=== PATIENT | male | born 1970 | race Caucasian/White ===

== ENCOUNTER 2017-06-29 19:20 | Inpatient (IN) | payer OTHER ==
[2017-06-29 19:37] VITALS: BMI 31.3
--- NOTE | 2017-06-29 21:45 | HP ---
CIWA Score - CIWA Score Nausea/Vomitin Muscle Tremors: 2 Anxiety: 3 Agitation: 2 Paroxysmal Sweats: 2 Orientation: 0-Oriented Tacttile Disturbances: 0-None Auditory Disturbances: 0-None Visual Disturbances: 2-Mild Sensitivity Headache: 2-Mild CIWA-Ar Total Score: 16 Admission ROS [facility] - HPI Chief Complaint: " I wish to stop taking all these drugs and get off the methadone, I want to go to rehab , but I also want to go to detox." Allergies/Adverse Reactions: Allergies Allergy/AdvReac Type Severity Reaction Status Date / Time aspirin Allergy Severe Swelling Verified 02/14/17 11:37 Penicillins Allergy Severe Swelling Verified 02/14/17 11:37 History of Present Illness: 47 yo male nicotine, alcohol, IV heroin, cocaine, and xanax dependence. Patient currently attends [facility] on methadone 40 mg, last medicated today. PMHX: CV x 2 with left hemiparesis, Emphysema, HTN, hyperlipidemia, schizophrenia, anxiety. Denies auditory or visual hallucinations. Denies suicidal / homicidal ideation. Reports attempted to commit suicide three times, last time 1996 by eating arsenic. Reports longest period of sobriety 15 years. Reports no prior detox, reports attempted to detox on his own and suffered seizures, last episode about a year ago. Exam Limitations: No Limitations - Ebola screening Have you traveled outside of the country in the last 21 days: No Have you had contact with anyone from an Ebola affected area: No Have you been sick,other than usual withdrawal symptoms: No Do you have a fever: No - Review of Systems Constitutional: No Symptoms Reported, Chills, Changes in sleep, Weakness, Unintentional Wgt. Loss EENT: reports: Other (decrease vision left eye) Respiratory: reports: No Symptoms reported Cardiac: reports: No Symptoms Reported GI: reports: Diarrhea, Nausea, Poor Appetite, Poor Fluid Intake, Vomiting, Abdominal cramping : reports: No Symptoms Reported Musculoskeletal: reports: Back Pain, Joint Pain Integumentary: reports: No Symptoms Reported Neuro: reports: See HPI, Headache, Seizure, Tingling Endocrine: reports: Increased Thirst Hematology: reports: Anemia Psychiatric: reports: Orientated x3, Depressed Other Systems: Reviewed and Negative Patient History - Patient Medical History Hx Anemia: Yes Hx Asthma: No Hx Chronic Obstructive Pulmonary Disease (COPD): Yes (Emphysema ) Hx Cancer: No Hx Cardiac Disorders: No Hx Congestive Heart Failure: No Hx Hypertension: Yes (does not know his medications.) Hx Hypercholesterolemia: Yes Hx Pacemaker: No HX Cerebrovascular Accident: Yes (Hemmoragic stroke x 2) Hx Seizures: Yes (drug related seizure last 2 days ago.) Hx Dementia: No Hx Diabetes: No Hx Gastrointestinal Disorders: No Hx Liver Disease: Yes (hx Hep C treate ) Hx Genitourinary Disorders: No Hx Sexually Transmitted Disorders: No Hx Renal Disease (ESRD): No Hx Thyroid Disease: No Hx Human Immunodeficiency Virus (HIV): No Hx Hepatitis C: Yes (treated ) Hx Depression: Yes Hx Suicide Attempt: Yes (Tried to overdose in 2006) Hx Schizophrenia: Yes - Patient Surgical History Past Surgical History: Yes Hx Neurologic Surgery: No Hx Cataract Extraction: No Hx Cardiac Surgery: No Hx Lung Surgery: No Hx Breast Surgery: No Hx Breast Biopsy: No Hx Abdominal Surgery: No Hx Appendectomy: No Hx Cholecystectomy: No Hx Genitourinary Surgery: No Hx Section: No Hx Orthopedic Surgery: Yes (R ankle sx) Hx Hysterectomy: No Anesthesia Reaction: No - PPD History Previous Implant?: No Documented Results: Negative w/o proof PPD to be Administered?: Yes - Reproductive History Patient is a Female of Child Bearing Age (11 -55 yrs old): No - Smoking Cessation Smoking history: Current every day smoker Have you smoked in the past 12 months: Yes Aproximately how many cigarettes per day: 20 Hx Chewing Tobacco Use: No Initiated information on smoking cessation: Yes 'Breaking Loose' booklet given: 06/29/17 - Substance & Tx. History Hx Alcohol Use: Yes Hx Substance Use: Yes Substance Use Type: Alcohol, Cocaine, Heroin, Tranquilizers Hx Substance Use Treatment: No - Substances Abused Alcohol Route: Oral Frequency: 3-6 times per week Amount used: 1/2 pint gin Age of first use: 21 Date of Last Use: 06/29/17 Heroin Route: Injection Frequency: Daily Amount used: 1 bag Age of first use: 45 Date of Last Use: 06/29/17 Cocaine Frequency: Daily Amount used: $30 Age of first use: 45 Date of Last Use: 06/29/17 Alprazolam (Xanax) Route: Oral Frequency: Daily Amount used: 2 x 2mg Age of first use: 28 Date of Last Use: 06/29/17 Family Disease History - Family Disease History Family Disease History: Other: Father (, aneurysm), Mother (, cancer and CVA ) Admission Physical Exam [facility] - Vital Signs Vital Signs: Vital Signs - 24 hr 06/29/17 19:28 Temperature 98.8 F Pulse Rate 76 Respiratory 18 Rate Blood Pressure 123/69 - Physical General Appearance: Yes: Disheveled, Anxious HEENTM: Yes: EOMI, Hearing grossly Normal, Normal ENT Inspection, Normocephalic , Normal Voice, Pharynx Normal, Tm's normal Respiratory: Yes: Chest Non-Tender, Lungs Clear, Normal Breath Sounds, No Respiratory Distress, No Accessory Muscle Use Neck: Yes: Within Normal Limits Breast: Yes: Breast Exam Deferred Cardiology: Yes: Regular Rhythm, Regular Rate Abdominal: Yes: Normal Bowel Sounds, Non Tender, Flat, Soft Genitourinary: Yes: Within Normal Limits Back: Yes: Other (scoliosis) Musculoskeletal: Yes: Gait Steady, Other (left hemiparesis, uses cane for ambulation) Extremities: Yes: Normal Capillary Refill, Normal Range of Motion, Non-Tender Neurological: Yes: 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 II-XII NML intact, Fully Oriented, Alert, Motor Strength 5/5, Depressed Affect Integumentary: Yes: Normal Color, Warm, Moist Lymphatic: Yes: Within Normal Limits - Diagnostic (1) Opioid dependence on agonist therapy Current Visit: Yes Status: Acute Comment: methadone 40 mg, dose pending verification (2) Sedative hypnotic or anxiolytic dependence Current Visit: Yes Status: Acute (3) Alcohol dependence with withdrawal Current Visit: Yes Status: Acute Qualifiers: Complication of substance-induced condition: uncomplicated Qualified Code(s ): F10.230 - Alcohol dependence with withdrawal, uncomplicated (4) Left hemiparesis Current Visit: Yes Status: Chronic (5) Use of cane as ambulatory aid Current Visit: Yes Status: Chronic (6) Cocaine dependence Current Visit: Yes Status: Acute Qualifiers: Substance use status: uncomplicated Qualified Code(s): F14.20 - Cocaine dependence, uncomplicated (7) IV drug user Current Visit: Yes Status: Acute Comment: heroin (8) Nicotine dependence Current Visit: Yes Status: Acute Qualifiers: Nicotine product type: cigarettes (9) Hypertension Current Visit: Yes Status: Chronic Qualifiers: Hypertension type: essential hypertension Qualified Code(s): I10 - Essential (primary) hypertension (10) Anxious mood Current Visit: Yes Status: Acute Cleared for Admission [facility] - Detox or Rehab [facility] Level of Care: Medically Managed Detox Regimen/Protocol: Librium [facility] Breath Alcohol Content Breath Alcohol Content: 0 Urine Drug Screen - Results Drug Screen Negative: No Urine Drug Screen Results: ALICJA-Cocaine, OPI-Opiates, BZO-Benzodiazepines, MTD- Methadone
[2017-06-29] MEDS ORDERED: MELATONIN 5 MG TABLETS PO PRN (22:00)
[2017-06-29] MEDS ORDERED: NICOTINE POLACRILEX 2 MG GUM BC PRN (22:58)
[2017-06-29] MEDS ORDERED: MAGNESIUM CITRATE 300 ML BOTTLE PO PRN (22:58)
[2017-06-29] MEDS ORDERED: IBUPROFEN 400 MG TABLET (FP) PO PRN (22:58)
[2017-06-29] MEDS ORDERED: MAGNESIUM HYDROX 2400MG/30ML ORAL SUSPENSION 30 ML CUP PO PRN (22:58)
[2017-06-29] MEDS ORDERED: guaiFENesin/D-METHORPHAN HB 10 ML UNIT-DOSE CUPS PO PRN (22:58)
[2017-06-29] MEDS ORDERED: ACETAMINOPHEN 325 MG TABLET (FP) PO PRN (22:58)
[2017-06-29] MEDS ORDERED: P-EPHED 60MG/TRIPROLIDI 2.5MG TABLET PO PRN (22:58)
[2017-06-29] MEDS ORDERED: MENTHOL/PHENOL 1 EACH UD MM PRN (22:58)
[2017-06-29] MEDS ORDERED: LOPERAMIDE HCL 2 MG CAPSULE PO PRN (22:58)
[2017-06-29] MEDS ORDERED: MAG HYDROX/AL HYDROX/SIMETH 30 ML UNIT-DOSE CUP PO PRN (22:58)
[2017-06-29] MEDS ORDERED: chlordiazePOXIDE HCL 25 MG CAPSULE PO PRN (22:58)
[2017-06-30] MEDS: chlordiazePOXIDE HCL 25 MG CAPSULE PO SCH ×5 (00:29→22:18)
[2017-06-30 05:15] LABS: URINE APPEARANCE TURBID; URINE BILIRUBIN NEGATIVE (<2.0 mg/dL); URINE COLOR YELLOW; URINE GLUCOSE (UA) NEGATIVE (NEGATIVE); URINE KETONE NEGATIVE (NEGATIVE); URINE LEUK ESTERASE NEGATIVE (NEGATIVE); URINE NITRITE NEGATIVE (NEGATIVE)
[2017-06-30 05:27] LABS: URINE PROTEIN 1+ (NEGATIVE)
[2017-06-30 05:34] LABS: URINE BACTERIA RARE /hpf (NONE SEEN); URINE MUCUS MODERATE
[2017-06-30] MEDS: BACLOFEN 10 MG TABLET (FP) PO SCH ×3 (06:26→22:18)
[2017-06-30] MEDS: TIZANIDINE HCL 4 MG TABLET PO SCH ×2 (06:26→15:05)
[2017-06-30] MEDS ORDERED: METHADONE HCL 40 MG DISPERSABLE TABLET PO ONE (09:45)
[2017-06-30 09:54] LABS: HEMATOCRIT 33.5 % (35.4-49); HEMOGLOBIN 11.3 GM/dL (11.7-16.9); MCH 29.7 pg (25.7-33.7); MCHC 33.6 g/dl (32.0-35.9); MEAN CELL VOLUME 88.4 fl (80-96); MEAN PLT VOLUME 7.7 fl (7.5-11.1); PLATELET COUNT 210 K/MM3 (134-434); RBC 3.79 M/mm3 (4.00-5.60); RDW 13.5 % (11.9-15.9); WHITE BLOOD COUNT 4.4 K/mm3 (4.0-10.0)
[2017-06-30] MEDS: PRENATAL VITAMINS W/ FOLIC ACID TABLET (FP) PO SCH (10:13)
[2017-06-30] MEDS: CLOPIDOGREL BISULFATE 75 MG TABLET (FP) PO SCH (10:13)
[2017-06-30] MEDS: GABAPENTIN 400 MG CAPSULE (FP) PO SCH ×2 (10:13→22:18)
[2017-06-30] MEDS: DIVALPROEX SODIUM 500 MG TABLET E.C. PO SCH ×2 (10:14→22:18)
[2017-06-30 10:38] LABS: ALBUMIN 2.8 g/dl (3.4-5.0); ANION GAP 4 (8-16); BLOOD UREA NITROGEN 10 mg/dL (7-18); CALCIUM 7.9 mg/dL (8.5-10.1); CHLORIDE 108 mmol/L (98-107); CO2 31 mmol/L (21-32); GLUCOSE,RANDOM 86 mg/dL (74-106); POTASSIUM 3.9 mmol/L (3.5-5.1); SODIUM 143 mmol/L (136-145)
[2017-06-30 10:42] LABS: ALK PHOS 68 U/L (45-117); BILIRUBIN,TOTAL 0.1 mg/dL (0.2-1.0); CREATININE 0.7 mg/dL (0.7-1.3); SGOT/AST 15 U/L (15-37); SGPT/ALT 19 U/L (12-78); TOT PROT 5.9 g/dl (6.4-8.2)
--- NOTE | 2017-06-30 11:00 | PN ---
[facility] CIWA - CIWA Score Nausea/Vomitin-No Nausea/No Vomiting Muscle Tremors: 4-Moderate,w/Arms Extend Anxiety: 4-Mod. Anxious/Guarded Agitation: 4-Moderately Restless Paroxysmal Sweats: 1-Minimal Palms Moist Orientation: 0-Oriented Tacttile Disturbances: 0-None Auditory Disturbances: 0-None Visual Disturbances: 0-None Headache: 0-None Present CIWA-Ar Total Score: 13 S Progress Note (SOAP) Subjective: ANXIETY,TREMORS,SWEATS/CHILLS,YAWNING,ACHY,NASAL CONGESTION. ON METHADONE 40 MG PO DAILY. Objective: 06/30/17 10:58 Vital Signs Temperature 97.0 F L 06/30/17 09:16 Pulse Rate 62 06/30/17 09:16 Respiratory Rate 16 06/30/17 09:16 Blood Pressure 124/83 06/30/17 09:16 O2 Sat by Pulse Oximetry (%) Laboratory Last Values WBC 4.4 K/mm3 (4.0-10.0) 06/30/17 07:30 RBC 3.79 M/mm3 (4.00-5.60) L 06/30/17 07:30 Hgb 11.3 GM/dL (11.7-16.9) L 06/30/17 07:30 Hct 33.5 % (35.4-49) L 06/30/17 07:30 MCV 88.4 fl (80-96) 06/30/17 07:30 MCH 29.7 pg (25.7-33.7) 06/30/17 07:30 MCHC 33.6 g/dl (32.0-35.9) 06/30/17 07:30 RDW 13.5 % (11.9-15.9) 06/30/17 07:30 Plt Count 210 K/MM3 (134-434) 06/30/17 07:30 MPV 7.7 fl (7.5-11.1) 06/30/17 07:30 Sodium 143 mmol/L (136-145) 06/30/17 07:30 Potassium 3.9 mmol/L (3.5-5.1) 06/30/17 07:30 Chloride 108 mmol/L (98-107) H 06/30/17 07:30 Carbon Dioxide 31 mmol/L (21-32) 06/30/17 07:30 Anion Gap 4 (8-16) L 06/30/17 07:30 BUN 10 mg/dL (7-18) 06/30/17 07:30 Creatinine 0.7 mg/dL (0.7-1.3) 06/30/17 07:30 Creat Clearance w eGFR > 60 (>60) 06/30/17 07:30 Random Glucose 86 mg/dL (74-106) 06/30/17 07:30 Calcium 7.9 mg/dL (8.5-10.1) L 06/30/17 07:30 Total Bilirubin 0.1 mg/dL (0.2-1.0) L 06/30/17 07:30 AST 15 U/L (15-37) 06/30/17 07:30 ALT 19 U/L (12-78) 06/30/17 07:30 Alkaline Phosphatase 68 U/L (45-117) 06/30/17 07:30 Total Protein 5.9 g/dl (6.4-8.2) L 06/30/17 07:30 Albumin 2.8 g/dl (3.4-5.0) L 06/30/17 07:30 Urine Color Yellow 06/29/17 23:53 Urine Appearance Turbid 06/29/17 23:53 Urine pH 5.0 (5.0-8.0) 06/29/17 23:53 Ur Specific [place] 1.033 (1.001-1.035) 06/29/17 23:53 Urine Protein 1+ (NEGATIVE) H 06/29/17 23:53 Urine Glucose (UA) Negative (NEGATIVE) 06/29/17 23:53 Urine Ketones Negative (NEGATIVE) 06/29/17 23:53 Urine Blood Negative (NEGATIVE) 06/29/17 23:53 Urine Nitrite Negative (NEGATIVE) 06/29/17 23:53 Urine Bilirubin Negative (<2.0 mg/dL) 06/29/17 23:53 Urine Urobilinogen 2.0 mg/dL (0.2-1.0) 06/29/17 23:53 Ur Leukocyte Esterase Negative (NEGATIVE) 06/29/17 23:53 Urine WBC (Auto) 73 /hpf (3-5) 06/29/17 23:53 Urine RBC (Auto) 2 /hpf (0-3) 06/29/17 23:53 Urine Bacteria Rare /hpf (NONE SEEN) 06/29/17 23:53 Urine Mucus Moderate 06/29/17 23:53 Assessment: 06/30/17 10:58 WITHDRAWAL SX Plan: CONTINUE DETOX REORDER METHADONE 40 MG PO DAILY, FIRST DOSE AT 10 AM. INCREASE PO FLUID. ACTIFED PRN
--- NOTE | 2017-06-30 11:32 | EKG ---
Test Reason : Blood Pressure : / mmHG Vent. Rate : 062 BPM Atrial Rate : 062 BPM P-R Int : 170 ms QRS Dur : 096 ms QT Int : 426 ms P-R-T Axes : 014 021 000 degrees QTc Int : 432 ms NORMAL SINUS RHYTHM NORMAL ECG NO PREVIOUS ECGS AVAILABLE Confirmed by GRUPO MORRIS MD ([id number]) on 06/30/2017 11:31:34 AM Referred By: Confirmed By:GRUPO MORRIS MD
--- NOTE | 2017-06-30 14:50 | CONSULT ---
[facility] Psychiatric Consult - Data Date of interview: 06/30/17 Admission source: [facility] Identifying data: Patient is a 47 year old male, but , father of two, on disability and receiving SSI, and is currently living in a senior care. Patient admitted to for opiate, cocaine, and benzodiazepine dependence. Substance Abuse History: Following information confirmed with Mr. [place] : Substance & Tx. History. Hx Alcohol Use: Yes. Hx Substance Use: Yes. Substance Use Type: Alcohol, Cocaine, Heroin, Tranquilizers. Hx Substance Use Treatment: No. - Substances Abused. Alcohol. Route: Oral. Frequency: 3-6 times per week. Amount used: 1/2 pint gin. Age of first use: 21. Date of Last Use: 06/29/17. Heroin. Route: Injection. Frequency: Daily. Amount used: 1 bag. Age of first use: 45. Date of Last Use: 06/29/17. Cocaine. Frequency: Daily. Amount used: $30. Age of first use: 45. Date of Last Use: 06/29/17. Alprazolam (Xanax). Route: Oral. Frequency: Daily. Amount used : 2 x 2mg. Age of first use: 28. Date of Last Use: 06/29/17 Medical History: anemia, hypertension, hypercholesterolemia, CVA ( hemmoragic stroke X2), Seizures (drug related 2 days ago), right ankle sx Psychiatric History: Patient presents as a poor historian and is unreliable. Pt. denies h/o psychiatric hospitalizations. OPD is provided in the [place] (pt. unable to recall the name of the clinic). Pt. unaware of his diagnosis but reports taking depakote 500mg BID. Pt. has had several seizures in the past but is unsure if the depakote is prescribed for the seizures. Patient reports taking zoloft 100mg but as per home medication list, patient reported taking zoloft 150mg. 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 Pt. currently denies suicidal and homicidal ideation. Physical/Sexual Abuse/Trauma History: Denies. Mental Status Exam - Mental Status Exam Alert and Oriented to: Time, Place, Person Cognitive Function: Good Patient Appearance: Well Groomed Mood: Withdrawn, Euthymic Affect: Mood Congruent Patient Behavior: Fatigued, Cooperative Speech Pattern: Delayed Voice Loudness: Moderately Soft/Quiet Thought Process: Goal Oriented Thought Disorder: Not Present Hallucinations: Denies Suicidal Ideation: Denies Homicidal Ideation: Denies Insight/Judgement: Poor Sleep: Fair Appetite: Fair Muscle strength/Tone: Normal Gait/Station: Normal Psychiatric Findings - Problem List ([place] 1, 2,3) (1) Substance induced mood disorder Current Visit: Yes Status: Acute (2) Alcohol dependence with withdrawal Current Visit: Yes Status: Acute Qualifiers: Complication of substance-induced condition: uncomplicated Qualified Code(s ): F10.230 - Alcohol dependence with withdrawal, uncomplicated (3) Opioid dependence on agonist therapy Current Visit: Yes Status: Acute Comment: methadone 40 mg, dose pending verification (4) Sedative hypnotic or anxiolytic dependence Current Visit: Yes Status: Acute (5) Cocaine dependence Current Visit: Yes Status: Acute Qualifiers: Substance use status: uncomplicated Qualified Code(s): F14.20 - Cocaine dependence, uncomplicated - Initial Treatment Plan Initial Treatment Plan: Psychoeducation provided. Detoxification in progress. Will order zoloft 50mg PO daily. Depakote 500mg BID ordered by [facility] upon admission. Will order valproic level. Benefits and side effects discussed. Verbal consent given. Will continue to monitor.
[2017-06-30] MEDS: THIAMINE HCL 100 MG TABLET (FP) PO SCH (22:18)
[2017-07-01] MEDS: METHADONE HCL 40 MG DISPERSABLE TABLET PO SCH (06:20)
[2017-07-01] MEDS: chlordiazePOXIDE HCL 25 MG CAPSULE PO SCH ×3 (06:21→17:15)
[2017-07-01] MEDS: BACLOFEN 10 MG TABLET (FP) PO SCH ×3 (06:21→22:15)
[2017-07-01] MEDS ORDERED: SERTRALINE HCL 50 MG TABLET (FP) PO SCH (10:00)
[2017-07-01] MEDS: CLOPIDOGREL BISULFATE 75 MG TABLET (FP) PO SCH (10:27)
[2017-07-01] MEDS: DIVALPROEX SODIUM 500 MG TABLET E.C. PO SCH ×2 (10:27→22:15)
[2017-07-01] MEDS: GABAPENTIN 400 MG CAPSULE (FP) PO SCH ×2 (10:27→22:15)
[2017-07-01] MEDS: PRENATAL VITAMINS W/ FOLIC ACID TABLET (FP) PO SCH (10:29)
--- NOTE | 2017-07-01 12:16 | PN ---
[facility] CIWA - CIWA Score Nausea/Vomitin-No Nausea/No Vomiting Muscle Tremors: 4-Moderate,w/Arms Extend Anxiety: 4-Mod. Anxious/Guarded Agitation: 4-Moderately Restless Paroxysmal Sweats: 1-Minimal Palms Moist Orientation: 0-Oriented Tacttile Disturbances: 3-Moderate Itch/Numb/Burn Auditory Disturbances: 0-None Visual Disturbances: 0-None Headache: 0-None Present CIWA-Ar Total Score: 16 S Progress Note (SOAP) Subjective: ANXIETY,IRRITABILITY,SWEATS,RESTLESSNESS,INTERMITTENT SLEPP. Objective: 07/01/17 12:15 Vital Signs Temperature 96.9 F L 07/01/17 09:55 Pulse Rate 61 07/01/17 09:55 Respiratory Rate 18 07/01/17 09:55 Blood Pressure 100/55 07/01/17 09:55 O2 Sat by Pulse Oximetry (%) Laboratory Tests 06/29/17 06/30/17 06/30/17 23:53 07:30 07:30 WBC 4.4 RBC 3.79 L Hgb 11.3 L Hct 33.5 L MCV 88.4 MCH 29.7 MCHC 33.6 RDW 13.5 Plt Count 210 MPV 7.7 Sodium 143 Potassium 3.9 Chloride 108 H Carbon Dioxide 31 Anion Gap 4 L BUN 10 Creatinine 0.7 Creat Clearance w eGFR > 60 Random Glucose 86 Calcium 7.9 L Total Bilirubin 0.1 L AST 15 ALT 19 Alkaline Phosphatase 68 Total Protein 5.9 L Albumin 2.8 L Urine Color Yellow Urine Appearance Turbid Urine pH 5.0 Ur Specific [place] 1.033 Urine Protein 1+ H Urine Glucose (UA) Negative Urine Ketones Negative Urine Blood Negative Urine Nitrite Negative Urine Bilirubin Negative Urine Urobilinogen 2.0 Ur Leukocyte Esterase Negative Urine WBC (Auto) 73 Urine RBC (Auto) 2 Urine Bacteria Rare Urine Mucus Moderate Valproic Acid RPR Titer 06/30/17 07/01/17 07:30 06:30 WBC RBC Hgb Hct MCV MCH MCHC RDW Plt Count MPV Sodium Potassium Chloride Carbon Dioxide Anion Gap BUN Creatinine Creat Clearance w eGFR Random Glucose Calcium Total Bilirubin AST ALT Alkaline Phosphatase Total Protein Albumin Urine Color Urine Appearance Urine pH Ur Specific [place] Urine Protein Urine Glucose (UA) Urine Ketones Urine Blood Urine Nitrite Urine Bilirubin Urine Urobilinogen Ur Leukocyte Esterase Urine WBC (Auto) Urine RBC (Auto) Urine Bacteria Urine Mucus Valproic Acid 31.764 L RPR Titer Nonreactive Assessment: 07/01/17 12:16 WITHDRAWAL SX Plan: CONTINUE DETOX REPEAT U[facility] TODAY
[2017-07-01 18:31] LABS: URINE APPEARANCE SLCLOUDY; URINE BILIRUBIN NEGATIVE (<2.0 mg/dL); URINE COLOR YELLOW; URINE GLUCOSE (UA) NEGATIVE (NEGATIVE); URINE KETONE NEGATIVE (NEGATIVE); URINE LEUK ESTERASE TRACE (NEGATIVE); URINE NITRITE NEGATIVE (NEGATIVE); URINE PROTEIN NEGATIVE (NEGATIVE); URINE UROBILINOGEN 4.0 E.U/dl mg/dL (0.2-1.0)
[2017-07-01 18:50] LABS: EPI CELLS RARE /HPF (FEW); URINE MUCUS MODERATE
[2017-07-01] MEDS: chlordiazePOXIDE 5 MG CAPSULE PO SCH (22:15)
[2017-07-01] MEDS: THIAMINE HCL 100 MG TABLET (FP) PO SCH (22:15)
[2017-07-02] MEDS: METHADONE HCL 40 MG DISPERSABLE TABLET PO SCH (05:36)
[2017-07-02] MEDS: chlordiazePOXIDE 5 MG CAPSULE PO SCH (05:36)
[2017-07-02] MEDS: BACLOFEN 10 MG TABLET (FP) PO SCH (05:36)
[2017-07-02 09:17] VITALS: BP 111/76; PULSE 70; TEMP 96.2
--- NOTE | 2017-07-02 12:24 | PN ---
[facility] Progress Note (SOAP) Subjective: Sweating, Anxious, Interrupted Sleep. Objective: PATIENT A & O X 3, OBSERVED AMBULATING ON UNIT. NO ACUTE DISTRESS. 07/02/17 12:23 Vital Signs Temperature 96.2 F L 07/02/17 09:16 Pulse Rate 70 07/02/17 09:16 Respiratory Rate 20 07/02/17 09:16 Blood Pressure 111/76 07/02/17 09:16 O2 Sat by Pulse Oximetry (%) Laboratory Tests 06/29/17 06/30/17 06/30/17 23:53 07:30 07:30 WBC 4.4 RBC 3.79 L Hgb 11.3 L Hct 33.5 L MCV 88.4 MCH 29.7 MCHC 33.6 RDW 13.5 Plt Count 210 MPV 7.7 Sodium 143 Potassium 3.9 Chloride 108 H Carbon Dioxide 31 Anion Gap 4 L BUN 10 Creatinine 0.7 Creat Clearance w eGFR > 60 Random Glucose 86 Calcium 7.9 L Total Bilirubin 0.1 L AST 15 ALT 19 Alkaline Phosphatase 68 Total Protein 5.9 L Albumin 2.8 L Urine Color Yellow Urine Appearance Turbid Urine pH 5.0 Ur Specific [place] 1.033 Urine Protein 1+ H Urine Glucose (UA) Negative Urine Ketones Negative Urine Blood Negative Urine Nitrite Negative Urine Bilirubin Negative Urine Urobilinogen 2.0 Ur Leukocyte Esterase Negative Urine WBC (Auto) 73 Urine RBC (Auto) 2 Ur Epithelial Cells Urine Bacteria Rare Urine Mucus Moderate Valproic Acid RPR Titer 06/30/17 07/01/17 07/01/17 07:30 06:30 14:20 WBC RBC Hgb Hct MCV MCH MCHC RDW Plt Count MPV Sodium Potassium Chloride Carbon Dioxide Anion Gap BUN Creatinine Creat Clearance w eGFR Random Glucose Calcium Total Bilirubin AST ALT Alkaline Phosphatase Total Protein Albumin Urine Color Yellow Urine Appearance Slcloudy Urine pH 8.0 D Ur Specific [place] 1.020 Urine Protein Negative Urine Glucose (UA) Negative Urine Ketones Negative Urine Blood Negative Urine Nitrite Negative Urine Bilirubin Negative Urine Urobilinogen 4.0 e.u/dl Ur Leukocyte Esterase Trace Urine WBC (Auto) <1 Urine RBC (Auto) 1 Ur Epithelial Cells Rare Urine Bacteria Urine Mucus Moderate Valproic Acid 31.764 L RPR Titer Nonreactive LABS NOTED. 07/02/17 12:24 Assessment: 07/02/17 12:24 WITHDRAWAL SYMPTOMS. Plan: CONTINUE DETOX.
--- NOTE | 2017-07-02 12:36 | DS ---
[facility] Detox Discharge Summary Admission Date: 06/29/17 Discharge Date: 07/02/17 - History Present History: Alcohol Dependence, Cocaine Dependence, Opioid Dependence, Sedative Dependence, MMTP Additional Comments: PATIENT DOES NOT WISH TO STAY TO COMPLETE DETOX REGIMEN. RISKS OF LEAVING DETOX UNIT AGAINST MEDICAL ADVICE AND PRIOR TO COMPLETION OF DETOX REGIMEN EXPLAINED TO PATIENT. PATIENT ADVISED TO GO IMMEDIATELY TO NEAREST ER SHOULD ANY INTOLERABLE DETOX SYMPTOMS DEVELOP AT ANY TIME. PATIENT LEFT DETOX UNIT IN STABLE MEDICAL CONDITION. Pertinent Past History: HTN, Hypercholesterolemia, History of Seizures (due to withdrawal), History of Hemorrhagic Stroke (X2), Depression, Left-sided Hemiparesis, Use of Cane as Ambulatory Aid, MMTP, COPD. - Physical Exam Results Vital Signs: Vital Signs Temperature 96.2 F L 07/02/17 09:16 Pulse Rate 70 07/02/17 09:16 Respiratory Rate 20 07/02/17 09:16 Blood Pressure 111/76 07/02/17 09:16 O2 Sat by Pulse Oximetry (%) Pertinent Admission Physical Exam Findings: WITHDRAWAL SYMPTOMS. Laboratory Tests 06/29/17 06/30/17 06/30/17 23:53 07:30 07:30 WBC 4.4 RBC 3.79 L Hgb 11.3 L Hct 33.5 L MCV 88.4 MCH 29.7 MCHC 33.6 RDW 13.5 Plt Count 210 MPV 7.7 Sodium 143 Potassium 3.9 Chloride 108 H Carbon Dioxide 31 Anion Gap 4 L BUN 10 Creatinine 0.7 Creat Clearance w eGFR > 60 Random Glucose 86 Calcium 7.9 L Total Bilirubin 0.1 L AST 15 ALT 19 Alkaline Phosphatase 68 Total Protein 5.9 L Albumin 2.8 L Urine Color Yellow Urine Appearance Turbid Urine pH 5.0 Ur Specific [place] 1.033 Urine Protein 1+ H Urine Glucose (UA) Negative Urine Ketones Negative Urine Blood Negative Urine Nitrite Negative Urine Bilirubin Negative Urine Urobilinogen 2.0 Ur Leukocyte Esterase Negative Urine WBC (Auto) 73 Urine RBC (Auto) 2 Ur Epithelial Cells Urine Bacteria Rare Urine Mucus Moderate Valproic Acid RPR Titer 06/30/17 07/01/17 07/01/17 07:30 06:30 14:20 WBC RBC Hgb Hct MCV MCH MCHC RDW Plt Count MPV Sodium Potassium Chloride Carbon Dioxide Anion Gap BUN Creatinine Creat Clearance w eGFR Random Glucose Calcium Total Bilirubin AST ALT Alkaline Phosphatase Total Protein Albumin Urine Color Yellow Urine Appearance Slcloudy Urine pH 8.0 D Ur Specific [place] 1.020 Urine Protein Negative Urine Glucose (UA) Negative Urine Ketones Negative Urine Blood Negative Urine Nitrite Negative Urine Bilirubin Negative Urine Urobilinogen 4.0 e.u/dl Ur Leukocyte Esterase Trace Urine WBC (Auto) <1 Urine RBC (Auto) 1 Ur Epithelial Cells Rare Urine Bacteria Urine Mucus Moderate Valproic Acid 31.764 L RPR Titer Nonreactive LABS NOTED. - Treatment Hospital Course: Detoxed Safely - Medication Discharge Medications: Ambulatory Orders Clopidogrel Bisulfate [Plavix] 75 mg PO DAILY 06/29/17 Divalproex [Depakote -] 500 mg PO BID 06/29/17 Gabapentin 800 mg PO BID 06/29/17 Sertraline HCl 150 mg PO DAILY 06/29/17 - Diagnosis (1) Alcohol dependence with withdrawal Status: Acute Qualifiers: Complication of substance-induced condition: uncomplicated Qualified Code(s ): F10.230 - Alcohol dependence with withdrawal, uncomplicated (2) Cocaine dependence Status: Acute Qualifiers: Substance use status: uncomplicated Qualified Code(s): F14.20 - Cocaine dependence, uncomplicated (3) IV drug user Status: Acute (4) Nicotine dependence Status: Acute Qualifiers: Nicotine product type: cigarettes Substance use status: uncomplicated Qualified Code(s): F17.210 - Nicotine dependence, cigarettes, uncomplicated (5) Opioid dependence on agonist therapy Status: Chronic (6) Sedative hypnotic or anxiolytic dependence Status: Acute (7) Substance induced mood disorder Status: Acute (8) Hypertension Status: Chronic Qualifiers: Hypertension type: essential hypertension Qualified Code(s): I10 - Essential (primary) hypertension (9) Left hemiparesis Status: Chronic (10) Use of cane as ambulatory aid Status: Chronic - AMA Did Patient Leave Against Medical Advice: Yes (PATIENT DID NOT WISH TO STAY TO COMPLETE DETOX REGIMEN.)
[2017-07-02] MEDS ORDERED: chlordiazePOXIDE HCL 10 MG CAPSULE PO SCH (23:00)
== END 2017-07-02 09:35 | disposition left against medical advice (07) | DRG 894 ==
LOC: YASAS 19:20 → Y3N 22:48
PROVIDERS: ADMIT Internal Medicine; ATTEND Internal Medicine
PROC: HZ2ZZZZ Detoxification Services for Substance Abuse Treatment (ICD-10-PCS; principal; 2017-06-29)
DX: F11.23 Opioid dependence with withdrawal (principal); F14.20 Cocaine dependence, uncomplicated; I69.854 Hemiplegia and hemiparesis following other cerebrovascular disease affecting left non-dominant side; F13.230 Sedative, hypnotic or anxiolytic dependence with withdrawal, uncomplicated; F10.230 Alcohol dependence with withdrawal, uncomplicated; F17.210 Nicotine dependence, cigarettes, uncomplicated; F32.9 Major depressive disorder, single episode, unspecified; F20.9 Schizophrenia, unspecified; F19.24 Other psychoactive substance dependence with psychoactive substance-induced mood disorder; I10 Essential (primary) hypertension; J43.8 Other emphysema; B18.2 Chronic viral hepatitis C; R63.4 Abnormal weight loss; Z99.89 Dependence on other enabling machines and devices; Z86.69 Personal history of other diseases of the nervous system and sense organs; Z91.5 Personal history of self-harm
CPT/HCPCS: 36415; 80053; 80164; 81003; 81015; 85027; 86593; 93005; 93010; J0475